=== PATIENT | male | born 1950 | race Caucasian/White ===

== ENCOUNTER 2023-08-04 07:22 | Outpatient (OUT) | payer MEDICARE, SELFPAY ==
--- NOTE | 2023-08-04 07:55 | NM_ITS ---
Patient: CALI CABRERA Exam Date: 08/04/2023 : 1950 Gender:M Ordering : DR Princess Peña M.D. Admission #: [id number] Family : Order #: [id number] CLICK HERE TO VIEW EXAM RADIOLOGY REPORT PROCEDURE: NM SHO PERF SPECT REST STR COMPARISON: None. INDICATIONS: DYSPNEA, FATIGUE TECHNIQUE: Exam Description: Stress/Rest two day protocol gated SPECT Rest Imagin.5 mCi Tc-99m Cardiolite IV on 08/06/2023 Stress Imaging 25.0 mCi Tc-99m Cardiolite IV on 08/04/2023 Exercise Protocol: Reji Heart Rate (bpm): Rest: 64 Max: 127 PMHR: 85 Blood Pressure: Rest: 126/74 Max: 218/86 Exercise Time: Minutes: 4 Seconds: 45 Stage Reached: Stage: 2 Mets 7.0 Symptoms: SHORTNESS OF BREATH Rest and peak stress ECG findings were non-diagnostic and the exercise portion of the study was Non-diagnostic per attending physician Dr. Boyd . For more details please see separate cardiac stress test report. FINDINGS: QUALITY OF STUDY: Excellent. PERFUSION DEFECT: LOCATION: Apical anterior. Apical inferior. SIZE: Small (1-2 segments). SEVERITY: Mild. TYPE: Mixed. WALL MOTION: Normal. LV SIZE: Normal. 110 mL. TID / TCD: None; 0.9 LVEF: Normal. Calculated EF 70%. SUMMARY: Myocardial perfusion imaging study has ABNORMAL findings. CONCLUSION: 1. Apically anterior and posterior wall mild perfusion defects with no change to very minimal change during rest imaging; fixed ischemia versus attenuation artifact. 2. Normal wall motion, left ventricle size, and ejection fraction. 1. Dictated by: Minh Hobbs M.D. on 08/06/2023 at 14:15 Approved by: Minh Hobbs M.D. on 08/06/2023 at 14:19
--- NOTE | 2023-08-04 09:01 | PM.STRESS ---
Stress Test Stress Test Requesting physician: Princess Peña Procedure: Exercise Cardiolite stress test General Information: Reason for Stress Test: Dyspnea Cardiac History and Risk Factors: Denies any personal history. Father, sister, brother, and nephew all had AK. Resting 12 - Lead Electrocardiogram: Rate & rhythm: Normal sinus at a rate of 64. [place]: Normal T-waves: Inverted in III ST-segments: Normal orientation Stress Test: Protocol: Reji protocol was followed, with injection of Cardiolite once target heart rate was achieved. Exercise capacity: Fair exercise capacity. Total exercise time of 4minutes 46seconds reached Reji stage 2 at 2.5MPH, 12% grade, & 7 METs. Blood pressure: Initial: 126/74, Maximum: 218/86, Recovery: 144/70 Rate & rhythm: Patient remained in rhythm during the exercise and recovery portions of the study.? The maximum heart rate was 127, which was 85% of the maximum predicted heart rate 148. Rare PVCs ST-segments & T-waves: During exercise, the inverted T-waves in III assumed a normal positive orientation. During recovery, they flattened and eventually became inverted as at baseline. No changes were noted in leads II or aVF. Patient response/symptoms: The patient voiced dyspnea which was similar to his chief complaint. Interpretation: Non-diagnostic exercise testing due to T-wave changes in lead III; there were no reciprocal changes in leads II or aVF. Dyspnea experienced during the testing appeared similar to his chief complaint. Increased blood pressure response. Cardiolite imaging interpretation will be reported separately. Clinical correlation required.?
== END 2023-08-04 07:23 | disposition home or self-care (01) ==
PROVIDERS: PCP Family Medicine; Visit Provider Family Medicine
DX: R06.09 Other forms of dyspnea (principal)
CPT/HCPCS: 78452; 93017; A9500

== ENCOUNTER 2023-08-06 09:34 | Outpatient (OUT) | payer MEDICARE, SELFPAY ==
[2023-08-06 10:20] LABS: Alanine Aminotransferase 63 U/L (16-63); Albumin Level 3.7 g/dL (3.4-5.0); Alkaline Phosphatase 79 U/L (46-116); Anion Gap 13.8; Aspartate Amino Transferase 62 U/L (15-37); BUN Creatinine Ratio 18.5; Bilirubin Total 0.8 mg/dL (0.2-1.0); Calcium 8.9 mg/dL (8.5-10.1); Carbon Dioxide 25.6 mmol/L (21.0-32.0); Chloride 104 mmol/L (98-107); Chol HDL Ratio 6.2; Cholesterol 217 mg/dL (<=200); Estimated GFR (African America >60 (>=60); Estimated GFR (Non-African Ame >60 (>=60); Globulin 3.6 g/dL; Glucose 145 mg/dL (74-106); HDL Cholesterol 35 mg/dL (40-60); Potassium 4.4 mmol/L (3.5-5.1); Sodium 139 mmol/L (136-145); Total Protein 7.3 g/dL (6.4-8.2); Triglycerides 226 mg/dL (<=150); VLDL CHOLESTEROL 45.2 mg/dL
[2023-08-06 11:40] LABS: Prostate Specific Antigen Scrn 3.42 ng/mL (<=4.00)
[2023-08-06 11:41] LABS: Basophils Percent Auto 0.3 % (0.2-2.0); Eosinophils Absolute Auto 0.2 10^3/uL (0.0-0.7); Eosinophils Percent Auto 3.4 % (0.9-7.0); Hematocrit 47.1 % (42.0-54.0); Hemoglobin 15.6 g/dL (14.0-18.0); Immature Granulocytes Abs Auto 0.02 10^3/uL (0.00-0.03); Immature Granulocytes Pct Auto 0.3 % (0.0-0.5); Lymphocytes Absolute Auto 1.8 10^3/uL (1.2-3.8); Lymphocytes Percent Auto 30.3 % (20.5-60.0); Mean Corpuscular HGB Conc 33.1 g/dL (29.9-35.2); Mean Corpuscular Hemoglobin 30.2 pg (25.9-34.0); Mean Corpuscular Volume 91.1 fL (80.0-94.0); Mean Platelet Volume 10.1 fL (9.5-13.5); Monocytes Absolute Auto 0.6 10^3/uL (0.3-0.8); Monocytes Percent Auto 10.7 % (1.7-12.0); Neutrophils Absolute Auto 3.2 10^3/uL (1.4-6.5); Platelet Count 374 10^3/uL (150-450); Red Blood Count 5.17 10^6/uL (4.70-6.10); Red Cell Distribution Width 12.6 % (11.0-15.0); White Blood Count 5.8 10^3/uL (4.0-11.0)
== END 2023-08-06 09:35 | disposition home or self-care (01) ==
LOC: LAB 09:34
PROVIDERS: PCP Family Medicine; Visit Provider Family Medicine
DX: Z12.5 Encounter for screening for malignant neoplasm of prostate (principal); I10 Essential (primary) hypertension
CPT/HCPCS: 36415; 80053; 80061; 85025; G0103

== ENCOUNTER 2023-09-27 12:44 | Outpatient (OUT) | payer MEDICARE, SELFPAY ==
[2023-09-27 12:58] LABS: Hemoglobin 16.3 g/dL (14.0-18.0)
--- NOTE | 2023-09-27 13:56 | RT_ITS ---
[facility] Test Date: 2023-09-27 Pat Name: CALI CABRERA Department: Room: - Gender: Male [employer]: Juan Ramon Dyer RRT : 1950 Requested By: [id number] Order Number: [id number] Reading MD: Te Boyd Interpretive Statements Pulmonary function testing was completed according to ATS criteria. Findings were considered accurate and reproducible. No bronchodilator was administered due to normal spirometric values. Spirometry: -FEV1/FVC: Normal @ 87% -FEV1: Normal @ 86% -FEV1: Reduced @ 73% Lung volumes by plethysmography: -RV: Low normal @ 81% -TLC: Low normal @ 82% Diffusion capacity: -DLCO: Mild reduction @ 71% when corrected for Hb 16.3g/dL Flow-volume loop: -Mild restrictive pattern Impressions: -Spirometry suggests mild restriction with lung volumes trending towards a mild restriction. Mild diffusion impairment. Overall study suggests a mild restrictive pattern that can be seen in, but not restricted to, cardiopulmonary vascular disorders, early interstitial lung disease, and early emphysema. Clinical correlation required. Electronically Signed On 09-27-2023 17:27:08 EST by Te Boyd
== END 2023-09-27 12:45 | disposition home or self-care (01) ==
LOC: CARD 12:44
PROVIDERS: PCP Family Medicine
DX: R06.09 Other forms of dyspnea (principal)
CPT/HCPCS: 36415; 85018; 94010; 94726; 94729

== ENCOUNTER 2023-09-28 14:35 | Outpatient (OUT) | payer MEDICARE, SELFPAY ==
--- NOTE | 2023-09-28 14:42 | XR_ITS ---
The [address] [address] Patient Name: CALI CABRERA MRN: [id number] date: 1950 Sex: M Assigned Patient Location: CARD Current Patient Location: CARD Accession/Order Number: [id number] Exam Date: 09/28/2023 14:55 Report Date: 09/28/2023 15:21 At the request of: NON-STAFF PHYSICIAN Procedure: XR chest 2V EXAM: XR chest 2V HISTORY: dyspnea on minimal exertion R06.09 COMPARISON: None TECHNIQUE: PA and lateral views of the chest were obtained. FINDINGS: Heart and mediastinal contours are unremarkable in appearance. No acute infiltrate or consolidations are seen. No obvious pneumothorax. [id number] degenerative changes in the dorsal spine with slight convexity to the right. Old healed rib fractures noted on the right. Fairly round calcific density measuring 1.5 cm overlying the superior left scapula may represent calcified loose body in the glenohumeral joint space. Mild degenerative changes about the shoulders. XR/XR chest 2V IMPRESSION: No acute process seen in the chest. Electronically authenticated by: COLLIN CARLSON Date: 09/28/2023 15:21
--- NOTE | 2023-09-28 15:33 | CA_ITS ---
Patient Name: CALI CABRERA MR#: [id number] : 1950 Exam Date: 09/28/2023 Ordering Doctor: MILI TRISTNA ECHOCARDIOGRAM REPORT PROCEDURE: CA ECHO DOPPLER COMPLETE INDICATIONS: Dyspnea on minimal exertion COMPARISON: None. DESCRIPTION: COMPLETE ECHOCARDIOGRAM Real-time transthoracic echocardiography with 2D, M-mode, spectral and color flow Doppler performed. QUALITY: Technical quality was good. LEFT VENTRICLE: Normal chamber size. Normal left ventricular wall thickness. LV EF: Global left ventricular systolic function is normal. Calculated left ventricular ejection fraction is 63%. No segmental wall motion abnormalities. DIASTOLIC: Normal diastolic function. ATRIAL SEPTUM: Inadequately seen. LEFT ATRIUM: Normal chamber size. RIGHT ATRIUM: Moderate dilatation. RIGHT VENTRICLE: Moderate dilatation. Decreased right ventricular systolic function. TRICUSPID VALVE: Normal mobility and thickness. No stenosis with trivial regurgitation. Mild pulmonary hypertension. RVSP 39mmHg MITRAL VALVE: Mildly thickened with normal mobility. No evidence of mitral valve stenosis. There is no mitral annular calcification. Trivial mitral regurgitation. AORTIC VALVE: Normal trileaflet appearance. Mildly calcified aortic valve. Normal leaflet mobility. No evidence of aortic valve stenosis. No aortic regurgitation. AORTIC ROOT: Normal diameter and appearance. PULMONIC VALVE: Normal thickness and mobility. No stenosis. Trivial regurgitation. PERICARDIUM: No evidence of pericardial effusion. IVC: Collapses with inspirations. Normal size. CONCLUSION: 1. Global left ventricular systolic function is normal; visually estimated ejection fraction is 60 to 65% 2. The right ventricle is moderately dilated with reduced systolic function 3. The right atrium is dilated 4. Normal diastolic function 5. Mildly elevated right ventricular systolic pressure; RVSP 39 mmHg 6. No significant valvular abnormalities Adult Echocardiography Procedure Report Left Ventricle LVEDD (3.7 - 5.6 cm): 5.00 cm LVESD (2.2 - 4.0 cm): 3.52 cm LVIVS thickness (0.6 - 1.2 cm): 1.06 cm LVPW thickness (0.5 - 1.0 cm): 1.00 cm e': 0.10 m/s E - e': 5.97 LVOT Max Gradient: 4.01 mm[Hg] LVOT Area (cm2): 1.00 m/s Peak Velocity (LVOT): 1.00 m/s Mean Velocity (LVOT): 0.71 m/s LVOT Diameter 2.42 cm Left Ventricular Ejection Fraction: 62.75 % Left Atrium LA Volume Index (2D A2C): 32.43 ml/m2 Left Atrium Systolic Dimension: 3.93 cm Mitral Valve MV E to A Ratio: 0.75 Mitral Valve A-Wave Peak Velocity: 0.77 m/s Mitral Valve E-Wave Peak Velocity: 0.58 m/s Right Ventricle RV Internal Diastolic Dimension: 4.94 cm Aorta AO Root Diam: 3.23 cm Ascending Ao Diam: 3.49 cm Aortic Valve AoV Area (Peak Ryan): 3.07 cm2, 3.07 cm2 AoV Area (VTI): 2.87 cm2, 2.87 cm2 Peak Velocity(Antegrade Flow): 1.49 m/s Peak Gradient(Antegrade Flow): 8.93 mm[Hg] Mean Velocity(Antegrade Flow): 0.96 m/s Mean Gradient(Antegrade Flow): 4.34 mm[Hg] Velocity Time Integral: 31.87 cm Tricuspid Valve Peak Velocity (Regurgitant Flow): 1.90 m/s, 2.08 m/s, 2.99 m/s Pulmonic Valve Mean Gradient: 3.48 mm[Hg] Mean Velocity: 0.89 m/s Peak Velocity: 1.33 m/s, 1.05 m/s Peak Gradient: 4.39 mm[Hg], 7.07 mm[Hg] Right Atrium Right Atrium Systolic Pressure: 97.50 ml, 97.50 ml Dictated by: Corey Saenz M.D. on 09/29/2023 at 15:56 Approved by: Corey Saenz M.D. on 09/29/2023 at 16:02
[2023-09-28 15:52] LABS: Thyroid Stimulating Hormone 2.474 uIU/mL (0.358-3.740)
== END 2023-09-28 14:36 | disposition home or self-care (01) ==
LOC: CARD 14:35
PROVIDERS: PCP Family Medicine
DX: R06.09 Other forms of dyspnea (principal)
CPT/HCPCS: 36415; 71046; 84443; 93306

== ENCOUNTER 2024-07-07 09:58 | Outpatient (OUT) | payer MEDICARE, SELFPAY ==
[2024-07-07 10:20] LABS: Basophils Percent Auto 0.5 % (0.2-2.0); Eosinophils Absolute Auto 0.2 10^3/uL (0.0-0.7); Eosinophils Percent Auto 3.1 % (0.9-7.0); Hematocrit 48.6 % (42.0-54.0); Hemoglobin 16.3 g/dL (14.0-18.0); Immature Granulocytes Abs Auto 0.01 10^3/uL (0.00-0.03); Immature Granulocytes Pct Auto 0.2 % (0.0-0.5); Lymphocytes Percent Auto 31.7 % (20.5-60.0); Mean Corpuscular HGB Conc 33.5 g/dL (29.9-35.2); Mean Corpuscular Hemoglobin 30.5 pg (25.9-34.0); Mean Corpuscular Volume 90.8 fL (80.0-94.0); Mean Platelet Volume 9.7 fL (9.5-13.5); Monocytes Absolute Auto 0.7 10^3/uL (0.3-0.8); Monocytes Percent Auto 10.7 % (1.7-12.0); Neutrophils Absolute Auto 3.4 10^3/uL (1.4-6.5); Neutrophils Percent Auto 53.8 % (43.0-75.0); Platelet Count 339 10^3/uL (150-450); Red Blood Count 5.35 10^6/uL (4.70-6.10); Red Cell Distribution Width 12.5 % (11.0-15.0); White Blood Count 6.4 10^3/uL (4.0-11.0)
[2024-07-07 10:38] LABS: Alanine Aminotransferase 36 U/L (16-63); Albumin Globulin Ratio 1.2; Alkaline Phosphatase 74 U/L (46-116); Anion Gap 9.7; Aspartate Amino Transferase 35 U/L (15-37); BUN Creatinine Ratio 19.8; Bilirubin Total 1.1 mg/dL (0.2-1.0); Carbon Dioxide 30.4 mmol/L (21.0-32.0); Chloride 103 mmol/L (98-107); Estimated GFR (African America >60 (>=60); Estimated GFR (Non-African Ame 54 (>=60); Globulin 3.3 g/dL; Glucose 138 mg/dL (74-106); Potassium 5.1 mmol/L (3.5-5.1); Sodium 138 mmol/L (136-145); Total Protein 7.3 g/dL (6.4-8.2)
== END 2024-07-07 09:59 | disposition home or self-care (01) ==
LOC: LAB 10:00
PROVIDERS: PCP Family Medicine; Visit Provider Nurse Practitioner Gerontology
DX: D75.1 Secondary polycythemia (principal)
CPT/HCPCS: 36415; 80053; 85025